=== PATIENT | male | born 1980 | race Caucasian/White ===

== ENCOUNTER 2023-07-23 13:24 | Emergency (ER) | payer OTHER ==
[2023-07-23 13:30] VITALS: BP 127/82; PULSE 88; RESP 18; TEMP 97.9; BMI 36.1
[2023-07-23] MEDS ORDERED: IBUPROFEN 600 MG TABLET (FP) PO ONE (14:51)
[2023-07-23] MEDS ORDERED: DIPHTH,PERTUSS(ACELL),TET 0.5 ML DISP.SYRIN IM ONE (14:51)
[2023-07-23] MEDS: DIPHTH,PERTUSS(ACELL),TET 0.5 ML DISP.SYRIN IM ONE (14:55)
[2023-07-23] MEDS: IBUPROFEN 600 MG TABLET (FP) PO ONE (14:55)
== END 2023-07-23 15:06 | disposition home or self-care (01) ==
LOC: JERFT 13:24
PROC: 0HQFXZZ Repair Right Hand Skin, External Approach (ICD-10-PCS; principal; 2023-07-23)
PROC: 3E0234Z Introduction of Serum, Toxoid and Vaccine into Muscle, Percutaneous Approach (ICD-10-PCS; 2023-07-23)
DX: S61.216A Laceration without foreign body of right little finger without damage to nail, initial encounter (principal); W18.40XA Slipping, tripping and stumbling without falling, unspecified, initial encounter; Y92.9 Unspecified place or not applicable
CPT/HCPCS: 12002-25; 90471; 90715; 99283-25

== ENCOUNTER 2023-08-12 14:47 | Emergency (ER) | payer OTHER ==
[2023-08-12 14:58] VITALS: BP 134/82; PULSE 100; RESP 16; TEMP 98.3; BMI 35.0
== END 2023-08-12 15:23 | disposition home or self-care (01) ==
LOC: JER 14:47 → JERFT 14:47
DX: Z48.02 Encounter for removal of sutures (principal)
CPT/HCPCS: 99281-25